=== PATIENT | female | born 1965 | race Caucasian/White ===

== ENCOUNTER → 2018-12-07 17:01 | Outpatient (CLI) | payer BC, SELFPAY ==
--- NOTE | 2018-12-07 17:11 | MRI_ITS ---
STUDY: MRI CERVICAL SPINE WITHOUT CONTRAST REASON FOR EXAM: Female, 53 years old. Headaches. Pain at the base of skull into the neck. TECHNIQUE: Standardized fat and water weighted pulse sequences were obtained in the sagittal and axial planes. COMPARISON: None FINDINGS: Normal foramen magnum and brainstem-cervical cord junction. Normal craniovertebral junction. Normal anterior atlantoaxial articulation. Normal odontoid process. Normal cervical lordosis. Normal vertebral bodies and posterior osseous elements. C2-3: Normal endplates. Normal disc height, signal and morphology. Normal central canal and intervertebral neural foramina. C3-4: Normal endplates. Normal disc height, signal and morphology. There is a small central disc protrusion with mild cord flattening. There is mild canal stenosis, predominantly due to shortened pedicles. Foramina are patent. C4-5: Edematous endplate changes. There is moderate disc space narrowing. There is a mild spondylotic bar with cord flattening. There is mild to moderate canal stenosis due to spondylosis and congenitally shortened pedicles. Foraminal stenosis is moderate on the right and severe on the left due to uncinate hypertrophy. C5-6: Normal endplates. Mild disc space narrowing. There is a mild spondylotic bar with minimal cord flattening. There is mild canal stenosis due to spondylosis and shortened pedicles. There is mild foraminal encroachment on the right due to uncinate hypertrophy. C6-7: Normal endplates. Disc space narrowing. There is no disc protrusion or canal stenosis. Foraminal encroachment is mild on the right and moderate on the left due to uncinate hypertrophy. C7-T1: Normal endplates. Normal disc height, signal and morphology. Normal central canal and intervertebral neural foramina. Normal cervical cord. Normal visualized soft tissue structures. MRI/Spine Cervical (Routine) IMPRESSION: 1. Mild to moderate canal stenosis from C3-4 through C5-6. Shortened pedicles are contributory. 2. Small C3-4 disc protrusion is contributory to cord flattening and canal stenosis. 3. Multilevel foraminal stenosis, greatest at C4-5 and C6-7. Electronically Signed: Tia Woody MD at 22:57 EDT Tel , Service support ,
== END ==
PROVIDERS: Family Provider Family Medicine; PCP Family Medicine; Referring Provider Chiropractor; Visit Provider Chiropractor
DX: M54.2 Cervicalgia (principal); G44.1 Vascular headache, not elsewhere classified
CPT/HCPCS: 72141

== ENCOUNTER → 2025-05-11 | Outpatient (CLI) | payer BC, SELFPAY ==
--- NOTE | 2025-05-11 17:10 | MRI_ITS ---
PROCEDURE: SPINE CERVICAL (ROUTINE) 05/11/2025 REASON FOR EXAM: RADICULOPATHY TECHNIQUE: SPINE CERVICAL (ROUTINE) Multiplanar and multisequence images were obtained without IV contrast administration. COMPARISON: 12/07/2018 FINDINGS: Normal cervical alignment. Normal vertebral body height. No Chiari deformity. No compression fracture. C2-3 is unremarkable. At C3-4, there is no central or foraminal stenosis. At C4-5, there is mild canal narrowing from concentric annular bulging with asymmetric moderate left C5 foraminal narrowing, unchanged. At C5-6 asymmetric right C6 foraminal stenosis has increased in prominence from uncinate spurring compared to the prior study. At C6-7, mild bilateral foraminal narrowing more prominent on the right is unchanged from prior C7-T1 is unremarkable. There is no cord compression or abnormal cord signal MRI/Spine Cervical (Routine) IMPRESSION: 1. Similar moderate left C5 foraminal narrowing. 2. Increasing right C6 foraminal narrowing. 3. Similar mild right C7 foraminal narrowing. 4. Normal spinal cord Reading [facility] [place]
== END | disposition home or self-care (01) ==
PROVIDERS: PCP Nurse Practitioner Family; Referring Provider Anesthesiology Pain Medicine; Visit Provider Anesthesiology Pain Medicine
DX: M54.12 Radiculopathy, cervical region (principal)
CPT/HCPCS: 72141